=== PATIENT | female | born 1985 | race Caucasian/White ===

== ENCOUNTER 2023-08-03 08:24 | Day surgery (SDC) | payer BC, MEDICAID ==
[2023-08-03] MEDS ORDERED: Midazolam 1 MG/ML 2 ML SDV IV ONE (08:25)
[2023-08-03] MEDS ORDERED: fentaNYL 100 MCG/2 ML SDV IV ONE (08:25)
[2023-08-03] MEDS ORDERED: Propofol 200 MG/20 ML SDV IV ONE (08:25)
[2023-08-03] MEDS ORDERED: Lactated Ringers 1,000 ML IV SCH (08:30)
[2023-08-03] MEDS ORDERED: Sodium Chloride 0.9% 10 ML Syringe FLUSH PRN (08:30)
== END 2023-08-03 11:18 | disposition home or self-care (01) ==
LOC: FB.SDS 08:24
PROVIDERS: ATTEND Surgery
DX: K31.9 Disease of stomach and duodenum, unspecified (principal); K29.80 Duodenitis without bleeding; K29.70 Gastritis, unspecified, without bleeding; E04.1 Nontoxic single thyroid nodule; K21.9 Gastro-esophageal reflux disease without esophagitis; Z87.891 Personal history of nicotine dependence; Z79.899 Other long term (current) drug therapy; Z98.890 Other specified postprocedural states; Z91.030 Bee allergy status; Z88.0 Allergy status to penicillin
CPT/HCPCS: 43239; 88305; J2250; J2704; J3010; J7120